=== PATIENT | male | born 1975 | race Caucasian/White ===

== ENCOUNTER 2016-11-16 14:18 | Emergency (ER) | payer BC ==
[2016-11-16 14:44] LABS: AMYLASE 35 IU/L (1-118); BASOPHIL COUNT 0.1 K/uL (0-0.1); CHLORIDE 104 mEq/L (99-109); EOSINOPHIL (%) 1.8 % (0-5); EOSINOPHIL COUNT 0.2 K/uL (0-0.3); HEMATOCRIT 43.8 % (38.0-50.0); IMMATURE GRANULOCYTE (%) 0.3 % (0.0-0.7); INSTRUMENT ABS NEUTROPHIL CT 6.8 K/uL; LYMPHOCYTE COUNT 2.2 K/uL (1.0-2.8); MCH 31.8 PG (29.0-34.0); MCHC 33.8 G/DL (30.0-36.0); MEAN PLAT.VOLUME 9.3 uM^3 (9.0-12.4); MONOCYTE (%) 11.2 % (3-12); MONOCYTE COUNT 1.2 K/uL (0-0.8); NEUTROPHIL (%) 65.2 % (45-76); NEUTROPHIL COUNT 6.8 K/uL (1.8-6.4); PLATELET COUNT 315 K/uL (156-360); POTASSIUM 3.6 mEq/L (3.7-5.4); RBC DIS.WIDTH-CV 13.9 % (11.8-14.6); RBC DIS.WIDTH-SD 47.8 % (39-53); RED BLOOD COUNT 4.66 M/uL (4.00-5.50); SODIUM 138 mEq/L (136-147); WHITE BLOOD COUNT 10.4 K/uL (4.1-10.2)
[2016-11-16 14:46] LABS: GLUCOSE 154 mg/dL (70-99)
[2016-11-16 14:48] LABS: ANION GAP 9 MEQ/L (2-14)
[2016-11-16 14:49] LABS: SERUM ETHYL ALCOHOL < 10 mg/dL
[2016-11-16 14:51] LABS: UREA NITROGEN (BUN) 17 mg/dL (9-23)
[2016-11-16 14:53] LABS: LIPASE 3 U/L (1.0-51.0)
[2016-11-16 14:56] LABS: GFR ESTIMATE (CALCULATED) > 59 mL/min/
[2016-11-16] MEDS ORDERED: PERCOCET 5/31 TABLET PO (16:18)
== END 2016-11-16 18:59 | disposition home or self-care (01) ==
LOC: TRA 14:18
PROVIDERS: Emergency Medicine
DX: S01.01XA Laceration without foreign body of scalp, initial encounter (principal); S52.571A Other intraarticular fracture of lower end of right radius, initial encounter for closed fracture; V18.0XXA Pedal cycle driver injured in noncollision transport accident in nontraffic accident, initial encounter; Y93.55 Activity, bike riding
CPT/HCPCS: 70450; 72125; 73030; 73090; 73110; 73560; 80048; 81003; 82150; 83690; 85025; 86850; 86900; 86901; G0480; J3010